=== PATIENT | female | born 1990 | race Caucasian/White ===

== ENCOUNTER 2019-04-16 22:59 | Emergency (ER) | payer OTHER ==
[~2019-04-16] VITALS: Ht 167.6 cm; Wt 109.6 kg
[2019-04-16] MEDS ORDERED: acetaminophen 325mg tablet PO ONE (23:35)
--- NOTE | 2019-04-16 23:36 | NUR ---
DISCUSSED PT'S C/O OF NAUSEA W/ DR BOSS;NEW ORDER FOR TYLENOL RECEIVED.
--- NOTE | 2019-04-17 00:58 | NUR ---
COVERING FOR NURSE SHONDA RN.PT RESTING IN BED DENIES ANY CONCERN ,NO DISTRESS NOTED VITALS STABLE AND UPDATED .WILL CONT TO MONITOR.PT WAITING TO BE SEEN BY MD,PT STILL HAVING PAIN 04/01.
[2019-04-17 02:00] VITALS: BP 115/64
== END 2019-04-17 02:17 | disposition home or self-care (01) ==
LOC: ER 22:59
DX: S60.221A Contusion of right hand, initial encounter (principal); S60.021A Contusion of right index finger without damage to nail, initial encounter; S60.051A Contusion of right little finger without damage to nail, initial encounter; S60.031A Contusion of right middle finger without damage to nail, initial encounter; S60.041A Contusion of right ring finger without damage to nail, initial encounter; S50.11XA Contusion of right forearm, initial encounter; E11.65 Type 2 diabetes mellitus with hyperglycemia; Y04.8XXA Assault by other bodily force, initial encounter; Y93.89 Activity, other specified; Y92.89 Other specified places as the place of occurrence of the external cause; Y99.8 Other external cause status
CPT/HCPCS: 73080; 73130; 99283